=== PATIENT | male | born 1940 | race Caucasian/White ===

== ENCOUNTER → 2018-04-12 | Outpatient (CLI) | payer MEDICARE ==
[~2018-04-12] MED LIST: IOPAMIDOL 370 MG/ML 200 ML INFUS..BTL INJ ONE; SODIUM CHLORIDE 0.9% 100 ML 100 ML ONE
--- NOTE | 2018-04-12 11:48 | Diagnostic Imaging Report ---
EXAM: CTA Abdomen and Pelvis WITH AND WITHOUT CONTRAST. DATE: 04/12/2018 8:53 AM INDICATION: COMPARISON: None TECHNIQUE: CT angiogram of the abdomen and pelvis was obtained before and after the administration of IV contrast. Prospective gating was performed. Images reviewed in the axial, coronal, and sagittal planes. 3D reconstructions performed on off-line workstation. IV Contrast: 100 mL Isovue-370. Total DLP: 1347 mGy*cm Est. Eff. Dose DLP x 0.015 x size factor mSv (CTDIvol has been reviewed and is below limits set by [facility]). Appropriate CT dose reduction techniques were utilized. FINDINGS: VASCULAR: Abdominal Aorta Mesenteric Segment: 29 x 27 mm. Abdominal Aorta Just Below Renal Arteries: 23 x 22 mm. Mid Infrarenal Abdominal Aorta: 26 x 26 mm. Abdominal Aortal at Bifurcation: 28 x 27 mm. Mesenteric Arteries: Moderate atherosclerotic change present celiac trunk, SMA, and single bilateral renal arteries with probable mild to moderate narrowing origin of both renal arteries and mild narrowing origin celiac trunk and SMA. Peripheral mild to moderate atherosclerotic changes noted. Abdominal aorta: No aneurysm or dissection. Moderate atherosclerotic changes. There is apparent postsurgical change of the mid/distal abdominal aorta likely representing aortobiiliac graft reconstruction. Iliac arteries: Iliofemoral bypass grafts are present and widely patent with occluded pilot point iliac arteries. Abdomen: Lung Bases: Atelectasis. Dense mitral annular calcifications and coronary artery vascular calcifications partially visualized. Possible biatrial enlargement partially visualized. Calcified pleural plaques along the diaphragm. Solid Organs: Nodular adrenal glands. Peripheral calcification along the spleen may represent sequela of prior trauma. Liver, adrenals, spleen, and pancreas otherwise unremarkable. Bilateral renal hypodensities too small to characterize. Calcified gallstones. Upper GI Tract: Gastric decompression limits adequate evaluation. No small bowel obstructive changes. Lymph Nodes: Scattered small mesenteric and aortocaval lymph nodes, not enlarged by size criteria. Other: Diastases ventral abdominal wall with several small superimposed fat-containing ventral wall hernias. Pelvis: Bladder: Decompressed. Other: Prostate measures 55 mm transverse diameter with coarse calcifications. Colon: Moderate stool limits evaluation. Sigmoid diverticulosis. Bones: Degenerative changes. IMPRESSION: 1. No aortic aneurysm or dissection. Presumed aortobiiliac graft reconstruction present. Moderate atherosclerotic changes mesenteric vessels with areas of narrowing of mesenteric vessels as detailed above. 2. Patent iliofemoral bypass grafts with occluded pilot point iliac arteries. 3. Dense mitral annular calcifications with probable biatrial enlargement. Echocardiogram could be obtained for further evaluation if indicated. 4. Cholelithiasis. 5. Diverticulosis. 6. Renal hypodensities incompletely evaluated. Renal ultrasound recommended. 7. Enlarged heterogeneous prostate. Clinical and laboratory correlation recommended. Signed by: Dr. Swapnil Blood MD on 04/12/2018 11:44 AM
== END ==
LOC: CT 08:46
PROVIDERS: ATTEND Internal Medicine
DX: I71.4 Abdominal aortic aneurysm, without rupture (principal)
CPT/HCPCS: 74174; Q9967